=== PATIENT | male | born 1980 | race Caucasian/White ===

== ENCOUNTER 2022-02-21 14:56 | Inpatient (IN) | payer BC ==
[~2022-02-21 14:56] MED LIST: Iopamidol-370 76% 500 ML 1 ML ONE
[2022-02-21 15:31] LABS: #Basophils 0.1 thou/uL (0.0-0.2); #Lymphocytes 4.1 thou/uL (1.20-3.40); #Monocytes 0.8 thou/uL (0.11-0.59); %Basophils 0.6 % (0.0-1.0); %Eosinophils 0.4 % (0.0-10.0); %Lymphocytes 41.1 % (21.0-51.0); %Monocytes 7.9 % (0.0-10.0); Hemoglobin 15.9 g/dL (14.0-18.0); Mean Corpuscular HGB CONC 35.3 g/dL (32.0-36.0); Mean Corpuscular Hemoglobin 32.4 pg (27.0-31.0); Mean Corpuscular Volume 91.7 fL (78.0-98.0); Mean Platelet Volume 6.2 fL (7.4-10.4); Platelet Count 274 thou/uL (130-400); RBC Distribution Width 12.2 % (11.5-14.5); Red Blood Cell (RBC) Count 4.92 mill/uL (4.70-6.10)
[2022-02-21 15:54] LABS: ALT (SGPT) 47 U/L (8-55); AST (SGOT) 16 U/L (5-34); Albumin 4.6 g/dL (3.5-5.0); Alkaline Phosphatase 42 U/L (40-110); Anion Gap 16 mmol/L (10-20); BUN (Urea Nitrogen) 16 mg/dL (8.9-20.6); Bilirubin, Total 0.9 mg/dL (0.2-1.2); Calc. Creatinine Clearance 0 mL/min (70-130); Calcium 9.5 mg/dL (7.8-10.44); Carbon Dioxide 27 mmol/L (22-29); Chloride 102 mmol/L (98-107); Estimated GFR 102; Globulin 3.1 g/dL (2.4-3.5); Glucose 73 mg/dL (70-105); Magnesium 1.9 mg/dL (1.6-2.6); Potassium 3.7 mmol/L (3.5-5.1); Protein, Total 7.7 g/dL (6.0-8.3); Sodium 141 mmol/L (136-145)
[2022-02-21] MEDS ORDERED: Tenecteplase 50 MG - STEMI KIT ONE (16:08)
[2022-02-21 16:13] LABS: PTT 31.3 sec (22.9-36.1)
[2022-02-21] MEDS ORDERED: Labetalol HCl 100 MG/20 ML VIAL SLOW IVP PRN (17:22)
[2022-02-21] MEDS ORDERED: HYDROcodone/Acetaminophen 5/325 mg Tablet PO PRN (17:22)
[2022-02-21] MEDS ORDERED: hydrALAZINE 20 MG/ML VIAL SLOW IVP PRN (17:22)
[2022-02-21] MEDS ORDERED: niCARdipine 25 MG in Sodium Chloride 0.9% 250 ML 250 ML IVPB PRN (17:22)
[2022-02-21] MEDS: Acetaminophen 325 MG TAB PO PRN (18:21)
[2022-02-21] MEDS: [UNRECOGNIZED DRUG - REMARK] FS SCH (18:22)
[2022-02-21 18:30] VITALS: BMI 24.7
[2022-02-21] MEDS ORDERED: Ondansetron PF 4 MG/2 ML Vial IVP PRN (18:44)
[2022-02-22 01:06] LABS: Amphetamine Not Detected (NotDetected); Barbiturates Screen Not Detected (NotDetected); Benzodiazepine Screen Not Detected (NotDetected); Cocaine Metabolite Screen Not Detected (NotDetected); Methadone Not Detected (NotDetected); Methamphetamine Not Detected (NotDetected); Opiate Screen Not Detected (NotDetected); Oxycodone Screen Not Detected (NotDetected); Phencyclidine (PCP) Not Detected (NotDetected); THC/Cannabinoid Screen Not Detected (NotDetected); Tricyclic Screen Not Detected (NotDetected)
[2022-02-22] MEDS: Acetaminophen 325 MG TAB PO PRN ×2 (05:21→19:21)
[2022-02-22 06:22] LABS: SARS-CoV-2 NAA Rapid Test Not Detected (NotDetected)
[2022-02-22] MEDS ORDERED: Acyclovir 800 mg Tablet PO SCH (14:00)
[2022-02-22 17:21] LABS: #Eosinphils 0.1 thou/uL (0.0-0.7); #Lymphocytes 2.5 thou/uL (1.20-3.40); #Monocytes 0.6 thou/uL (0.11-0.59); #Neutrophils 5.9 thou/uL (1.40-6.50); %Basophils 0.3 % (0.0-1.0); %Eosinophils 0.7 % (0.0-10.0); %Lymphocytes 27.9 % (21.0-51.0); %Monocytes 6.8 % (0.0-10.0); %Neutrophils 64.3 % (42.0-75.0); Hemoglobin 16.3 g/dL (14.0-18.0); Mean Corpuscular HGB CONC 34.4 g/dL (32.0-36.0); Mean Corpuscular Hemoglobin 31.9 pg (27.0-31.0); Mean Corpuscular Volume 92.8 fL (78.0-98.0); Platelet Count 238 thou/uL (130-400); RBC Distribution Width 12.3 % (11.5-14.5); White Blood Cell (WBC) Count 9.1 thou/uL (4.8-10.8)
[2022-02-22 17:41] LABS: Anion Gap 14 mmol/L (10-20); BUN (Urea Nitrogen) 14 mg/dL (8.9-20.6); Calc. Creatinine Clearance 123 mL/min (70-130); Calcium 9.6 mg/dL (7.8-10.44); Carbon Dioxide 29 mmol/L (22-29); Cardiac Risk 3.8 (Less than 4.5); Chloride 101 mmol/L (98-107); Cholesterol 191 mg/dl (< 200 Desired); Estimated GFR 111; Glucose 93 mg/dL (70-105); HDL Cholesterol 50 mg/dL (>60 Neg Risk); LDL Cholesterol, Calculated 121 mg/dL; Sodium 140 mmol/L (136-145); Triglycerides 101 mg/dL (Less than 150)
[2022-02-22] MEDS: [UNRECOGNIZED DRUG - REMARK] FS SCH (18:44)
[2022-02-22] MEDS: valACYclovir 500 MG TAB PO SCH (21:52)
[2022-02-23] MEDS: valACYclovir 500 MG TAB PO SCH ×2 (05:58→12:43)
[2022-02-23] MEDS: Acetaminophen 325 MG TAB PO PRN (06:01)
[2022-02-23 07:48] VITALS: TEMP 97.8
[2022-02-23 08:23] LABS: Hemoglobin A1c 4.9 % (4.0-6.0)
[2022-02-23] MEDS ORDERED: Enoxaparin Sodium 40 MG/0.4 ML SYRINGE SC SCH (09:00)
[2022-02-23] MEDS ORDERED: Aspirin 81 mg Enteric Coated Tablet PO SCH (09:00)
[2022-02-23 10:59] VITALS: BP 134/92
== END 2022-02-23 12:50 | disposition home or self-care (01) | DRG 62 ==
LOC: ERS 14:56 → CCU 16:34
PROVIDERS: ADMIT Family Medicine; ATTEND Family Medicine
DX: G45.9 Transient cerebral ischemic attack, unspecified (principal); B02.8 Zoster with other complications; G37.3 Acute transverse myelitis in demyelinating disease of central nervous system; F41.1 Generalized anxiety disorder; Z20.822 Contact with and (suspected) exposure to COVID-19; Z79.899 Other long term (current) drug therapy; Z90.49 Acquired absence of other specified parts of digestive tract; Z90.89 Acquired absence of other organs; Z87.891 Personal history of nicotine dependence; Z82.49 Family history of ischemic heart disease and other diseases of the circulatory system; Z81.8 Family history of other mental and behavioral disorders
CPT/HCPCS: 36415; 36416; 70450; 70496; 70498; 70551; 71045; 80048; 80053; 80061; 80306; 83036; 83735; 84443; 84484; 85025; 85610; 85730; 93005; 93306; 94760; J1650; J2405; J3101; Q9967; U0002; U0003; U0005

== ENCOUNTER 2022-11-05 08:51 | Outpatient (CLI) | payer BC | END 2022-11-05 08:52 | disposition home or self-care (01) | LOC: RAD 08:51 | PROVIDERS: ATTEND Internal Medicine Rheumatology | DX: R05.9 Cough, unspecified (principal) | CPT/HCPCS: 71046 ==

== ENCOUNTER 2023-06-05 08:53 | Outpatient (CLI) | payer BC | END 2023-06-05 08:54 | disposition home or self-care (01) | LOC: BICRAD 08:53 | PROVIDERS: ATTEND Physician Assistant | DX: S89.92XD Unspecified injury of left lower leg, subsequent encounter (principal) ==

== ENCOUNTER 2023-07-23 07:42 | Outpatient (CLI) | payer OTHER | END 2023-07-23 07:43 | disposition home or self-care (01) | LOC: BICMRI 07:42 | PROVIDERS: ATTEND Nurse Practitioner Family | DX: S89.92XD Unspecified injury of left lower leg, subsequent encounter (principal); M22.2X2 Patellofemoral disorders, left knee ==

== ENCOUNTER 2023-08-14 13:30 | Outpatient (CLI) | payer BC | END 2023-08-14 13:31 | disposition home or self-care (01) | LOC: MRI 13:30 | PROVIDERS: ATTEND Nurse Practitioner Family | DX: G44.89 Other headache syndrome (principal) | CPT/HCPCS: 70551 ==